=== PATIENT | male | born 1980 | race Caucasian/White ===

== ENCOUNTER 2018-01-18 22:40 | Emergency (ER) | payer OTHER ==
[2018-01-18 23:17] VITALS: BP 148/84; PULSE 72; O2SAT 99
[2018-01-18] MEDS ORDERED: Adacel Vial IM ONE (23:31)
[2018-01-18] MEDS: Adacel Vial IM ONE (23:35)
--- NOTE | 2018-01-18 23:55 | ERPHSYRPT ---
- History of Present Illness Time Seen by Provider: 01/18/18 23:49 Source: patient Exam Limitations: no limitations Patient Subjective Stated Complaint: pt states he sat down at work and the corner of a piece of metal went through his pant leg and cut the medial side of his right knee. Triage Nursing Assessment: pt a&o x3; skin p, w, & d; wound well approximated on medial right knee; minor bleeding; ambulated to room per self; coworker at bedside. Physician History: The patient is a 37-year-old male with a coworker complaining that he accidentally cut his right knee on a piece of metal while at work this evening. He denies numbness or tingling. His last tetanus vaccination was several years ago and he is in need of 1 tonight. His past medical history is significant for diabetes and gout. Timing/Duration: today Quality: painful Severity: mild Location: extremities (right knee) Possible Causes: other (sharp metal) Associated Symptoms: denies symptoms Allergies/Adverse Reactions: No Known Drug Allergies Allergy (Verified 01/18/18 23:17) Home Medications: Allopurinol 100 mg [Zyloprim 100 mg] 100 mg PO DAILY 01/18/18 [History] Metformin HCl 500 mg [Glucophage 500 MG] 500 mg PO DAILY 01/18/18 [History ] Hx Tetanus, Diphtheria Vaccination/Date Given: No Hx Influenza Vaccination/Date Given: Yes Hx Pneumococcal Vaccination/Date Given: No Immunizations Up to Date: No - Review of Systems Constitutional: No Fever, No Chills Eyes: No Symptoms Ears, Nose, & Throat: No Symptoms Respiratory: No Cough, No Dyspnea Cardiac: No Chest Pain, No Edema, No Syncope Abdominal/Gastrointestinal: No Abdominal Pain, No Nausea, No Vomiting, No Diarrhea Genitourinary Symptoms: No Dysuria Musculoskeletal: No Back Pain, No Neck Pain Skin: Other (laceration) Neurological: No Dizziness, No Focal Weakness, No Sensory Changes Psychological: No Symptoms Endocrine: No Symptoms Hematologic/Lymphatic: No Symptoms Immunological/Allergic: No Symptoms All Other Systems: Reviewed and Negative - Past Medical History Pertinent Past Medical History: No - Past Surgical History Past Surgical History: No - Social History Smoking Status: Never smoker Exposure to second hand smoke: No Drug Use: none Patient Lives Alone: No - Nursing Vital Signs Nursing Vital Signs: Initial Vital Signs Temperature 99 F 01/18/18 23:10 Pulse Rate 72 01/18/18 23:10 Respiratory Rate 16 01/18/18 23:10 Blood Pressure 148/84 01/18/18 23:10 O2 Sat by Pulse Oximetry 99 01/18/18 23:10 Pain Scale Pain Intensity 0 - Physical Exam General Appearance: no apparent distress, alert Eye Exam: PERRL/EOMI, eyes nml inspection Ears, Nose, Throat Exam: normal ENT inspection, pharynx normal, moist mucous membranes Neck Exam: normal inspection, non-tender, supple, full range of motion Respiratory Exam: normal breath sounds, lungs clear, No respiratory distress Cardiovascular Exam: regular rate/rhythm, normal heart sounds Gastrointestinal/Abdomen Exam: soft, mass, No tenderness Rectal Exam: not done Back Exam: normal inspection, normal range of motion, No CVA tenderness, No vertebral tenderness Extremity Exam: normal inspection, normal range of motion Neurologic Exam: alert, oriented x 3, cooperative, normal mood/affect, sensation nml, No motor deficits Skin Exam: laceration (5 cm laceration to right medial knee) SpO2 Interpretation: normal SpO2: 99 Oxygen Delivery: Room Air Procedures - Laceration/Wound Repair Right Medial Knee Wound Location: Right, lower leg Wound Length (cm): 5 Wound's Depth, Shape: superficial, linear Wound Explored: clean Irrigated: No Hibiclens Prep: Yes Anesthesia: 1% Lidocaine Volume Anesthetic (ccs): 10 Wound Repaired With: sutures Suture Size/Type: 4-0, ethilon Number of Sutures: 7 Layer Closure?: No Sterile Dressing Applied?: Yes Splint Applied?: No Sling Applied?: No Ordered Tests: Active Orders 24 hr Category Date Time Status Wound Care STAT Care 01/18/18 23:58 Active Medication Summary Discontinued Medications Generic Name Dose Route Start Last Admin Trade Name Freq PRN Reason Stop Dose Admin Diphtheria/Tetanus/Acell Pertussis 0.5 ml 01/18/18 23:33 01/18/18 23:35 Adacel Vial IM 01/18/18 23:34 0.5 ml .ONCE ONE Administration Diphtheria/Tetanus/Acell Pertussis Confirm 01/18/18 23:31 Adacel Vial Administered 01/18/18 23:32 Dose 0.5 ml IM .STK-MED ONE Lidocaine HCl 10 ml 01/18/18 23:58 01/19/18 00:08 Xylocaine 1% Hcl 20 Ml Mdv IJ 01/18/18 23:59 10 ml STAT ONE Administration Lidocaine HCl Confirm 01/19/18 00:04 Xylocaine 1% Hcl 20 Ml Mdv Administered 01/19/18 00:05 Dose 10 ml .ROUTE .STK-MED ONE - Progress Progress: improved Counseled pt/family regarding: diagnosis, need for follow-up - Departure Time of Disposition: 00:33 Departure Disposition: Home Clinical Impression: Laceration of right knee Condition: Stable Critical Care Time: No Additional Instructions: You have a laceration to her right knee that was repaired with 7 sutures. You were given a tetanus vaccination. You were also given Augmentin 875 one tablet in the ER. Continue Augmentin 875 to times a day for 10 days. Have your primary medical doctor remove the sutures in 12-14 days. Keep the area clean and dry. You may take a quick shower as needed. Prescriptions: Amox Tr/Potass Clav. 875 mg [Augmentin 875-125 Tablet] 1 each PO BID #20 tablet
[2018-01-19] MEDS ORDERED: XYLOCAINE 1% HCL 20 ML MDV ONE (00:04)
[2018-01-19] MEDS: XYLOCAINE 1% HCL 20 ML MDV IJ ONE (00:08)
[2018-01-19] MEDS ORDERED: Augmentin 875-125 Tablet ONE (00:41)
[2018-01-19] MEDS: Augmentin 875-125 Tablet PO ONE (00:43)
== END 2018-01-19 00:52 | disposition home or self-care (01) ==
LOC: ED 22:40
PROC: 0HQKXZZ Repair Right Lower Leg Skin, External Approach (ICD-10-PCS; principal; 2018-01-18)
DX: S81.011A Laceration without foreign body, right knee, initial encounter (principal); W26.8XXA Contact with other sharp object(s), not elsewhere classified, initial encounter; Y92.64 Mine or pit as the place of occurrence of the external cause; Y99.0 Civilian activity done for income or pay
CPT/HCPCS: 12002; 80307; 90471; 90715; 96372; 99284; A9270-GY